=== PATIENT | female | born 1945 | race Caucasian/White ===

== ENCOUNTER 2017-07-30 09:10 | Outpatient (CLI) | payer MEDICARE, OTHER | END 2017-07-30 09:11 | disposition home or self-care (01) | LOC: BICMAMMO 09:10 | PROVIDERS: ATTEND Obstetrics & Gynecology | DX: Z12.31 Encounter for screening mammogram for malignant neoplasm of breast (principal); Z85.3 Personal history of malignant neoplasm of breast | CPT/HCPCS: 77063; 77067 ==

== ENCOUNTER 2018-07-31 09:48 | Outpatient (CLI) | payer MEDICARE, OTHER ==
--- NOTE | 2018-07-31 12:17 | BD ---
DEXA BONE DENSITOMETRY: (Dual energy X-ray Absorptiometry) DATE: 07/31/18 HISTORY: 73-year-old postmenopausal white female for follow-up age-related osteoporosis screening examination. Weight: 175 lbs. Height: 66. Age of menopause: 28 years. COMPARISON: Most recent previous: 01/23/15. Baseline: 12/08/08. FINDINGS: There is a prominent levoscoliosis. This is associated with sclerotic degenerative changes along the right, concave side of the curvature, resulting in elevation of the BMD. Bone mineral density (BMD) is given in grams per square centimeter (g/cm2): LUMBAR SPINE: BMD(g/cm2) T-score Z-score L1: 0.956 -0.3 1.8 L2: 0.962 -0.6 1.8 L3: 1.058 -0.2 2.3 L4: 1.139 0.7 3.3 Total: 1.034 -0.1 2.3 Change in BMD compared to most recent previous DEXA: +3.5% Change in BMD compared to baseline DEXA: +2.3% HIP: Femoral neck: 0.611 -2.1 -0.1 Total: 0.847 -0.8 1.0 Change in BMD compared to most recent previous DEXA: +6.1% Change in BMD compared to baseline DEXA: +0.6% FRAX WHO Fracture Risk Assessment Tool: 10 Year Fracture Risk * Major osteoporotic fracture: 14% Hip fracture: 3.7% Reported Risk Factors: US(), Neck BMD=0.611, BMI=28.2 * Fracture probability is calculated for an untreated patient. Fracture probability may be lower if the patient has received treatment. IMPRESSION: 1. Bone mineral density of the lumbar spine is normal. However, there are sclerotic degenerative nicolas nges associated with prominent scoliosis, which results in elevation of the bone mineral density, and thereby could result in underestimation of the fracture risk. 2. The bone mineral density of the femoral neck is osteopenic. Fracture risk is increased. KANNAN Butt POS: ELIJAH
== END 2018-07-31 09:49 | disposition home or self-care (01) ==
LOC: BICMAMMO 09:48
PROVIDERS: ATTEND Obstetrics & Gynecology
DX: Z12.31 Encounter for screening mammogram for malignant neoplasm of breast (principal); Z13.820 Encounter for screening for osteoporosis; M85.859 Other specified disorders of bone density and structure, unspecified thigh; R92.1 Mammographic calcification found on diagnostic imaging of breast; Z98.890 Other specified postprocedural states; Z85.3 Personal history of malignant neoplasm of breast
CPT/HCPCS: 77063; 77067; 77080

== ENCOUNTER 2019-03-19 06:15 | Observation (INO) | payer MEDICARE, OTHER ==
[2019-03-19 06:47] LABS: #Basophils 0.1 thou/uL (0.0-0.2); #Eosinphils 0.1 thou/uL (0.0-0.7); #Monocytes 0.4 thou/uL (0.11-0.59); #Neutrophils 4.4 thou/uL (1.40-6.50); %Basophils 1.1 % (0.0-1.0); %Eosinophils 1.1 % (0.0-10.0); %Lymphocytes 16.2 % (21.0-51.0); %Monocytes 7.2 % (0.0-10.0); %Neutrophils 74.5 % (42.0-75.0); Hemoglobin 13.3 g/dL (12.0-16.0); Mean Corpuscular HGB CONC 34.4 g/dL (32.0-36.0); Mean Corpuscular Hemoglobin 30.5 pg (27.0-31.0); Mean Corpuscular Volume 88.7 fL (78.0-98.0); Mean Platelet Volume 6.4 fL (7.4-10.4); Platelet Count 226 thou/uL (130-400); RBC Distribution Width 12.3 % (11.5-14.5); Red Blood Cell (RBC) Count 4.37 mill/uL (4.20-5.40)
[2019-03-19 07:06] LABS: ALT (SGPT) 22 U/L (8-55); AST (SGOT) 20 U/L (5-34); Albumin 4.3 g/dL (3.4-4.8); Alkaline Phosphatase 104 U/L (40-150); Anion Gap 12 mmol/L (10-20); BUN (Urea Nitrogen) 13 mg/dL (9.8-20.1); Bilirubin, Total 0.5 mg/dL (0.2-1.2); CK (CPK) 99 U/L (29-168); Calc. Creatinine Clearance 0 mL/min (70-130); Calcium 9.7 mg/dL (7.8-10.44); Carbon Dioxide 24 mmol/L (23-31); Chloride 102 mmol/L (98-107); Estimated GFR-MDRD 79; Globulin 2.3 g/dL (2.4-3.5); Glucose 161 mg/dL (83-110); Potassium 3.1 mmol/L (3.5-5.1); Protein, Total 6.6 g/dL (6.0-8.3); Sodium 135 mmol/L (136-145)
--- NOTE | 2019-03-19 07:57 | RAD ---
RADIOGRAPH CHEST 1 VIEW: DATE: 03/19/2019 HISTORY: 73-year-old female with palpitations FINDINGS: There are no airspace densities, pulmonary edema, pneumothorax, or cardiomegaly. The lateral costophr enic angles are sharp. Prominent dextroscoliosis of lower thoracic spine. Levoscoliosis of lumbar spine incompletely imaged. IMPRESSION: 1. No acute cardiopulmonary findings. 2. S-shaped scoliosis.
[2019-03-19] MEDS ORDERED: Potassium Chloride 20 MEQ TAB ONE (08:06)
[2019-03-19] MEDS ORDERED: Aspirin Chewable 81 MG TAB ONE (08:06)
[2019-03-19] MEDS ORDERED: ADENOSINE 60 MG/20 ML VIAL ONE (09:51)
[2019-03-19 11:14] LABS: Free T4 (Free Thyroxine) 1.06 ng/dL (0.70-1.48); Thyroid Stimulating Hormone 0.7872 uIU/mL (0.35-4.94)
[2019-03-19] MEDS ORDERED: Ondansetron PF 4 MG/2 ML Vial IVP PRN (12:03)
[2019-03-19] MEDS ORDERED: Nitroglycerin 0.4 MG TAB (25 Tab Bottle) PO PRN (12:03)
[2019-03-19] MEDS ORDERED: Acetaminophen 325 MG TAB PO PRN (12:03)
[2019-03-19] MEDS ORDERED: Ondansetron ODT 4 MG TAB PO PRN (12:03)
[2019-03-19 13:28] LABS: Magnesium 1.7 mg/dL (1.6-2.6); Potassium 3.4 mmol/L (3.5-5.1)
[2019-03-19 13:34] LABS: Troponin I 0.031 ng/mL (< 0.028)
--- NOTE | 2019-03-19 16:34 | NM ---
EXAM: CARDIAC SPECT HISTORY: Chest pain, hypertension, diabetes, dyslipidemia TECHNIQUE: A myocardial perfusion scan was performed using the single isotope 1 day protocol with xuan hnetium 99m sestamibi. [10 mCi] was injected intravenously for the rest exam followed by 30 mCi for the stress study. Pharmacologic stress with adenosine was monitored and interpreted by Dr. Ash FINDINGS: Homogeneous tracer distribution is seen in the myocardial segments on stress and rest image s without fixed or reversible defects. Gated SPECT LVEF: 73% Wall motion exam: Normal IMPRESSION: Normal myocardial perfusion scan
[2019-03-19 16:39] VITALS: BMI 29.2
[2019-03-19] MEDS: Famotidine 20 MG TAB PO SCH (20:05)
--- NOTE | 2019-03-19 21:43 | HP ---
PRIMARY CARE PHYSICIAN: Anitha Patino MD. CHIEF COMPLAINT: Palpitations. HISTORY OF PRESENT ILLNESS: Ms. Gibson is a pleasant 73-year-old female who has a past medical history of hypertension, hyperlipidemia, hypothyroidism, Duff's palsy, and borderline diabetes, who had presented to [facility] earlier this morning after she had noticed on and off palpitations over the last 3 to 4 days. She has a sensation that her heart is fluttering in her chest, but she had denied any chest pain or pressure. She states that she has just felt odd and not herself. She had denied any fever, chills, any headache, blurred vision or dizziness, any chest pain, shortness of breath, abdominal pain, nausea, vomiting, change in her stool or numbness, tingling, or weakness down her upper and lower extremities. Her workup in the ED showed her potassium was low at 3.1, but otherwise unremarkable, she was given potassium replacement along with baby aspirin, she was monitored on tele and she states that she feels somewhat better, her repeat potassium came back 3.4, and she states that the symptoms were a little bit better. She however does state that her pharmacy sales representative is Dr. Ash and she states that she had a cardiac catheterization about 3 to 5 years ago, which showed some mild coronary artery disease, for that reason, she will be brought in and undergo further workup for ACS rule out. REVIEW OF SYSTEMS: All other systems were reviewed and found to be negative unless mentioned in the HPI. PAST MEDICAL HISTORY: Hypertension, hyperlipidemia, gastroesophageal reflux disease, borderline diabetes, mild Duff's palsy, hypothyroidism, and history of right breast cancer. PAST SURGICAL HISTORY: Lumpectomy on the right side, cardiac catheterization, hysterectomy, oophorectomy. PSYCHIATRIC HISTORY: None. SOCIAL HISTORY: The patient denies alcohol, tobacco, or illicit drug use. KNOWN ALLERGIES: No known drug allergies. CURRENT HOME MEDICATIONS: 1. Atorvastatin 20 mg oral daily. 2. Levothyroxine 88 mcg oral daily. 3. Losartan 100 mg once daily. 4. Atenolol chlorthalidone 50/25 mg once daily. 5. Potassium chloride 8 mEq oral daily. 6. Aspirin 81 mg daily. PHYSICAL EXAMINATION: VITAL SIGNS: BP 158/68, pulse 74, respirations 20, temperature 98.1, O2 saturation 96% on room air. GENERAL: The patient is awake, alert, and oriented x3. She is currently lying comfortably in bed and in no acute distress. Her family is at bedside. HEENT: Atraumatic, normocephalic. Pupils are round and reactive to light. Extraocular muscles intact. Moist mucous membranes noted. NECK: Soft and supple. Trachea midline. CARDIOVASCULAR: Positive S1 and S2. Regular rate and rhythm. No murmur auscultated. RESPIRATORY: Clear to auscultation bilaterally. No wheezes, rales, or rhonchi. ABDOMEN: Soft, nontender. Bowel sounds present. MUSCULOSKELETAL: Strength 5+ bilaterally upper and lower extremities. Moves all extremities equal. No edema noted. NEUROLOGIC: Cranial nerves 2 through 12 grossly intact. No focal deficits noted. Speech intact and normal. Gait not assessed. The patient does appear to have slight facial droop; however, this is her baseline due to Duff's palsy. SKIN: Warm, dry, and intact. No rashes. No ulceration noted. PSYCHIATRIC: Good mood and affect. LABORATORY FINDING: WBC 6.0, RBC 4.37, hemoglobin 13.3, platelets 226. Sodium 135, potassium 3.1 and then 3.4, anion gap 12, BUN 13, creatinine 0.72, estimated GFR 79, glucose 161, magnesium 1.8. Troponin less than 0.010. Free T4 of 1.06, TSH 0.7872. DIAGNOSTIC IMAGING: Portable chest x-ray showed no acute cardiopulmonary findings. EKG shows normal sinus rhythm with preventricular complex. ASSESSMENT AND PLAN: 1. Palpitations, she is normal sinus rhythm with a premature ventricular contraction on the monitor. Her initial troponin is negative and serial checks are pending. She is currently asymptomatic at this time; however, she will undergo cardiac stress testing for further acute coronary syndrome rule out. 2. Hypertension, currently stable at this time. She will be restarted on her home regimen. 3. Hyperlipidemia. Continue home statin. 4. Hypothyroidism. TSH and T4 stable at this time. Continue home dose of levothyroxine. 5. Hypokalemia. Continue with potassium chloride and recheck BMP in the morning. 6. Borderline diabetes mellitus. We will closely monitor blood sugars and add an insulin sliding scale if needed. 7. Deep venous thrombosis and gastrointestinal prophylaxis. 8. Code status is full code. 9. Surrogate decision maker is her daughter, Malka Truong. DISPOSITION: Pending further workup and clinical findings. Job ID: [id number]
[2019-03-20 05:27] LABS: #Eosinphils 0.1 thou/uL (0.0-0.7); #Lymphocytes 1.2 thou/uL (1.20-3.40); #Monocytes 0.3 thou/uL (0.11-0.59); #Neutrophils 2.2 thou/uL (1.40-6.50); %Basophils 0.3 % (0.0-1.0); %Lymphocytes 31.8 % (21.0-51.0); Hemoglobin 12.5 g/dL (12.0-16.0); Mean Corpuscular HGB CONC 34.5 g/dL (32.0-36.0); Mean Corpuscular Volume 89.7 fL (78.0-98.0); Mean Platelet Volume 6.3 fL (7.4-10.4); Platelet Count 203 thou/uL (130-400); RBC Distribution Width 12.2 % (11.5-14.5); Red Blood Cell (RBC) Count 4.05 mill/uL (4.20-5.40); White Blood Cell (WBC) Count 3.8 thou/uL (4.8-10.8)
[2019-03-20 05:46] LABS: Anion Gap 12 mmol/L (10-20); BUN (Urea Nitrogen) 7 mg/dL (9.8-20.1); Calc. Creatinine Clearance 102 mL/min (70-130); Calcium 9.1 mg/dL (7.8-10.44); Carbon Dioxide 25 mmol/L (23-31); Cardiac Risk 2.2 (Less than 4.5); Chloride 101 mmol/L (98-107); Cholesterol 141 mg/dl (< 200 Desired); Estimated GFR-MDRD Greater than 90; Glucose 118 mg/dL (83-110); HDL Cholesterol 64 mg/dL (>60 Neg Risk); LDL Cholesterol, Calculated 66 mg/dL; Potassium 3.5 mmol/L (3.5-5.1); Sodium 134 mmol/L (136-145); Triglycerides 57 mg/dL (Less than 150)
[2019-03-20 08:10] VITALS: BP 155/67; TEMP 98.5
[2019-03-20] MEDS: Famotidine 20 MG TAB PO SCH (08:39)
[2019-03-20] MEDS ORDERED: Enoxaparin Sodium 40 MG/0.4 ML SYRINGE SC SCH (09:00)
[2019-03-20] MEDS ORDERED: CHLORTHALIDONE PO SCH (09:00)
[2019-03-20] MEDS ORDERED: ATENOLOL PO SCH (09:00)
[2019-03-20] MEDS ORDERED: Levothyroxine Sodium 88 MCG TAB PO SCH (09:00)
[2019-03-20] MEDS ORDERED: Losartan 25 MG TAB PO SCH (09:00)
[2019-03-20] MEDS ORDERED: Atorvastatin Calcium 20 MG TAB PO SCH (09:00)
[2019-03-20] MEDS ORDERED: Atenolol 50 MG TAB PO SCH (09:00)
[2019-03-20] MEDS ORDERED: Aspirin 81 mg Enteric Coated Tablet PO SCH (09:00)
[2019-03-20] MEDS ORDERED: Potassium Chloride 8 MEQ TAB PO SCH (09:00)
[2019-03-20] MEDS ORDERED: Chlorthalidone 25 MG TAB PO SCH (09:00)
[2019-03-20] MEDS ORDERED: Non-Formulary Item 1 EACH (Losartan Potassium [Cozaar] 100 MG) PO SCH (09:00)
[2019-03-20] MEDS ORDERED: [UNRECOGNIZED DRUG - OTHER] PO SCH (09:00)
--- NOTE | 2019-03-20 22:16 | DIS ---
DATE OF ADMISSION: 03/19/2019 DATE OF DISCHARGE: 03/20/2019 DISCHARGE DIAGNOSES: 1. Palpitations. 2. Chest pain. 3. Hypokalemia. 4. Hyperlipidemia. 5. Hypothyroidism. HOSPITAL COURSE: The patient is a 73-year-old female, who initially presented to the hospital with complaints of palpitations. Please look at the H and P for further details. She was found to be hypokalemic, had a potassium of 3.1. Her potassium was supplemented. She did undergo a stress test, which was normal. Overnight, she had no events on her telemetry. The patient was then discharged home. She will follow up with her primary. Her potassium has been replaced. I did advise her to take her 8 mEq of potassium twice a day every other day. I have provided her with the lab slip that she will check her blood work next week and she will follow up with her primary. She is on losartan, which should increase her potassium; however, she is also on chlorthalidone, which could also cause hypokalemia. I did advise the patient to follow up with her primary to keep a close eye on her blood work for her potassium levels. HOME MEDICATIONS: Her home medications will be; 1. Potassium 8 mEq one b.i.d. every other day, on the alternate days, she will take it daily. 2. Losartan 100 mg daily. 3. Levothyroxine 88 mcg daily. 4. Atorvastatin 20 mg daily. 5. Atenolol and chlorthalidone 1 tablet p.o. daily. 6. Aspirin 81 mg daily. PHYSICAL EXAMINATION: VITAL SIGNS: Temperature 98.5, pulse 67, respiratory rate 15, O2 saturation 94% on room air, blood pressure 155/67. GENERAL: She is awake, alert, and oriented x3. Does not appear in distress. CV: S1, S2 present. No murmurs, rubs, or gallops. ABDOMEN: Soft and nontender. Bowel sounds are present x2. We also checked her TSH. Her TSH was 0.78 and it was within normal range. Job ID: [id number]
--- NOTE | 2019-03-27 13:51 | EKG ---
Test Reason : PALPITATIONS Blood Pressure : / mmHG Vent. Rate : 079 BPM Atrial Rate : 079 BPM P-R Int : 182 ms QRS Dur : 094 ms QT Int : 392 ms P-R-T Axes : 066 001 051 degrees QTc Int : 449 ms Sinus rhythm with occasional Premature ventricular complexes Possible Anterior infarct , age undetermined Abnormal ECG Confirmed by MCKAY GARCIA DO ([id number]), metropolitan editor MARIANA BUSTAMANTE ([id number]) on 03/27/2019 1:51:16 PM Referred By: Confirmed By:MCKAY GARCIA DO
--- NOTE | 2019-03-27 13:51 | EKG ---
Test Reason : CP Blood Pressure : / mmHG Vent. Rate : 071 BPM Atrial Rate : 071 BPM P-R Int : 158 ms QRS Dur : 086 ms QT Int : 414 ms P-R-T Axes : -20 -06 051 degrees QTc Int : 449 ms Normal sinus rhythm Normal ECG #3 Confirmed by MCKAY GARCIA DO ([id number]), supervising editor news reel MARIANA BUSTAMANTE ([id number]) on 03/27/2019 1:51:31 PM Referred By: JOSE Confirmed By:MCKAY GARCIA DO
== END 2019-03-20 10:42 | disposition home or self-care (01) ==
LOC: ERS 06:15 → ERHOLD 07:20 → 2SW 13:35
PROVIDERS: ADMIT Internal Medicine; ATTEND Internal Medicine
DX: R00.2 Palpitations (principal); E87.6 Hypokalemia; E78.5 Hyperlipidemia, unspecified; E03.9 Hypothyroidism, unspecified; I10 Essential (primary) hypertension; E11.9 Type 2 diabetes mellitus without complications; K21.9 Gastro-esophageal reflux disease without esophagitis; Z79.82 Long term (current) use of aspirin; Z79.899 Other long term (current) drug therapy
CPT/HCPCS: 71045; 78452; 80048; 80061; 82550; 83735; 84132; 84439; 84484 ×2; 85025; 93005; 93017; 99285; A9500; G0378 ×3; 36415; 80053; 84443; J0153; J1650

== ENCOUNTER 2019-08-03 09:50 | Outpatient (CLI) | payer MEDICARE, OTHER ==
--- NOTE | 2019-08-03 10:33 | MMO ---
Bilateral MAMMO Bilat Screen [facility]. CLINICAL HISTORY: Patient is 74 years old and is seen for screening. The patient has no family history of breast cancer. The patient has a history of right Lumpectomy in 2008 - malignant. VIEWS: The views performed were: bilateral craniocaudal with tomosynthesis and bilateral mediolateral oblique with tomosynthesis. FILMS COMPARED: The present examination has been compared to prior imaging studies performed at [facility] on 07/30/2017 and 07/31/2018, and at [facility] on 07/25/2015 and 07/29/2016. This study has been interpreted with the assistance of computer-aided detection. MAMMOGRAM FINDINGS: The breasts are heterogeneously dense, which could obscure a lesion on mammography. Finding 1: There are stable post operative changes seen in the right breast. Finding 2: There are stable benign appearing calcifications seen in both breasts. There are no suspicious masses, suspicious calcifications, or new areas of architectural distortion. IMPRESSION: THERE IS NO MAMMOGRAPHIC EVIDENCE OF MALIGNANCY. A ROUTINE FOLLOW-UP MAMMOGRAM IN 1 YEAR IS RECOMMENDED. THE RESULTS OF THIS EXAM WERE SENT TO THE PATIENT. ACR BI-RADS Category 2 - Benign finding MAMMOGRAPHY NOTE: 1. A negative mammogram report should not delay a biopsy if a dominant of clinically suspicious mass is present. 2. Approximately 10% to 15% of breast cancers are not detected by mammography. 3. Adenosis and dense breasts may obscure an underlying neoplasm. Reported by: TINA HICKS MD Electonically Signed: [id number]
== END 2019-08-03 09:51 | disposition home or self-care (01) ==
LOC: BICMAMMO 09:50
PROVIDERS: ATTEND Obstetrics & Gynecology
DX: Z12.31 Encounter for screening mammogram for malignant neoplasm of breast (principal); Z98.890 Other specified postprocedural states
CPT/HCPCS: 77063; 77067

== ENCOUNTER 2020-04-03 08:19 | Outpatient (CLI) | payer MEDICARE ==
--- NOTE | 2020-04-03 11:46 | NM ---
EXAM: NM Hida Scan W Drug PROVIDED CLINICAL HISTORY: Right upper quadrant abdominal pain. COMPARISON: None FINDINGS: There is normal uptake and excretion of radiotracer by the liver. Gallbladder activity is faintly vis ualized by 7 minutes with increased uptake of radiotracer within the gallbladder imaging up to 60 minutes. After 60 minutes of imaging imaging, the patient was administered 8 ounces of ensure by michelle bass. A gallbladder ejection fraction of 80% was obtained. A normal gallbladder ejection fraction is greater than 33%. IMPRESSION: 1. No evidence of a cystic or common duct obstruction. 2. Normal gallbladder ejection fraction.
== END 2020-04-03 08:20 | disposition home or self-care (01) ==
LOC: NM 08:19
PROVIDERS: ATTEND Family Medicine
DX: R10.11 Right upper quadrant pain (principal)
CPT/HCPCS: 78227; A9537

== ENCOUNTER 2020-10-30 04:27 | Inpatient (IN) | payer MEDICARE ==
[2020-10-30] MEDS ORDERED: Ondansetron PF 4 MG/2 ML Vial ONE ×4 (04:51→20:12)
[2020-10-30 05:07] LABS: #Eosinphils 0.1 thou/uL (0.0-0.7); #Lymphocytes 1.4 thou/uL (1.20-3.40); #Monocytes 0.5 thou/uL (0.11-0.59); #Neutrophils 3.8 thou/uL (1.40-6.50); %Basophils 0.7 % (0.0-1.0); %Eosinophils 1.4 % (0.0-10.0); %Lymphocytes 24.1 % (21.0-51.0); %Monocytes 8.8 % (0.0-10.0); %Neutrophils 64.9 % (42.0-75.0); Mean Corpuscular HGB CONC 34.2 g/dL (32.0-36.0); Mean Corpuscular Hemoglobin 30.6 pg (27.0-31.0); Mean Corpuscular Volume 89.6 fL (78.0-98.0); Mean Platelet Volume 6.2 fL (7.4-10.4); Platelet Count 254 thou/uL (130-400); RBC Distribution Width 12.4 % (11.5-14.5); Red Blood Cell (RBC) Count 4.26 mill/uL (4.20-5.40); White Blood Cell (WBC) Count 5.9 thou/uL (4.8-10.8)
[2020-10-30 05:32] LABS: ALT (SGPT) 21 U/L (8-55); AST (SGOT) 20 U/L (5-34); Albumin 4.2 g/dL (3.4-4.8); Alkaline Phosphatase 105 U/L (40-110); Anion Gap 10 mmol/L (10-20); BUN (Urea Nitrogen) 16 mg/dL (9.8-20.1); Bilirubin, Total 0.4 mg/dL (0.2-1.2); Calc. Creatinine Clearance 0 mL/min (70-130); Calcium 9.5 mg/dL (7.8-10.44); Carbon Dioxide 27 mmol/L (23-31); Chloride 99 mmol/L (98-107); Globulin 2.6 g/dL (2.4-3.5); Glucose 160 mg/dL (83-110); Potassium 3.2 mmol/L (3.5-5.1); Protein, Total 6.8 g/dL (5.8-8.1); Sodium 133 mmol/L (136-145)
[2020-10-30] MEDS ORDERED: Meclizine HCl 25 MG TAB ONE ×2 (05:37→14:02)
[2020-10-30] MEDS ORDERED: Aspirin Chewable 81 MG TAB ONE ×4 (06:33→07:54)
[2020-10-30 08:33] LABS: Bilirubin Negative (Negative); Blood, Urine Negative (Negative); Clarity Clear (Clear); Glucose, Urine (Dipstick) Normal (Negative); Ketone, Urine Negative (Negative); Leukocyte Negative Leu/uL (Negative); Nitrite Negative (Negative); Protein, Urine (Dipstick) Negative (Neg-Trace); Specific Gravity, Urine 1.019 (1.002-1.036); Urobilinogen Normal mg/dL (Less than 2); pH, Urine 6.5 (5.0-9.0)
[2020-10-30] MEDS ORDERED: hydrALAZINE 20 MG/ML VIAL SLOW IVP PRN (09:11)
[2020-10-30 13:57] LABS: SARS-CoV-2 PCR by NAA Not Detected (NotDetected)
[2020-10-30] MEDS: Ondansetron PF 4 MG/2 ML Vial IVP PRN ×2 (14:25→20:12)
[2020-10-30] MEDS: Meclizine HCl 12.5 MG TAB PO PRN ×2 (14:25→22:42)
[2020-10-30 21:18] VITALS: BMI 26.7
[2020-10-30] MEDS ORDERED: Dextrose 50% Abboject 50 ML SYRINGE SLOW IVP PRN (21:37)
[2020-10-30] MEDS ORDERED: Dextrose 5% in Water 1,000 ML IV PRN (21:37)
[2020-10-30] MEDS ORDERED: metFORMIN 500 MG TAB PO SCH (21:45)
[2020-10-30] MEDS: Acetaminophen 500 MG TAB PO PRN (22:37)
[2020-10-30] MEDS: Potassium Chloride 20 MEQ TAB PO SCH ×2 (22:41→22:48)
[2020-10-30] MEDS: Rosuvastatin 20 MG TAB PO SCH (22:42)
[2020-10-31] MEDS: Meclizine HCl 12.5 MG TAB PO PRN ×2 (04:54→13:15)
[2020-10-31] MEDS: Acetaminophen 500 MG TAB PO PRN ×3 (04:54→21:58)
[2020-10-31] MEDS: Levothyroxine Sodium 88 MCG TAB PO SCH (04:54)
[2020-10-31] MEDS ORDERED: Prochlorperazine 10 MG/2 ML VIAL IM PRN (09:19)
[2020-10-31] MEDS: Enoxaparin Sodium 40 MG/0.4 ML SYRINGE SC SCH (09:26)
[2020-10-31] MEDS: Aspirin 81 mg Enteric Coated Tablet PO SCH (09:26)
[2020-10-31] MEDS: Insulin Regular 300 UNITS/3 ML VIAL SC PRN (11:42)
[2020-10-31] MEDS: metFORMIN 500 MG TAB PO SCH (17:48)
[2020-10-31] MEDS ORDERED: Potassium Chloride 8 MEQ TAB PO SCH ×2 (21:00)
[2020-10-31] MEDS: Meclizine HCl 25 MG TAB PO SCH (21:58)
[2020-10-31] MEDS: Rosuvastatin 20 MG TAB PO SCH (21:58)
[2020-11-01 05:56] LABS: #Lymphocytes 1.2 thou/uL (1.20-3.40); #Monocytes 0.6 thou/uL (0.11-0.59); #Neutrophils 3.3 thou/uL (1.40-6.50); %Basophils 0.4 % (0.0-1.0); %Eosinophils 0.9 % (0.0-10.0); %Lymphocytes 23.2 % (21.0-51.0); %Monocytes 10.8 % (0.0-10.0); %Neutrophils 64.7 % (42.0-75.0); Hemoglobin 12.1 g/dL (12.0-16.0); Mean Corpuscular HGB CONC 35.2 g/dL (32.0-36.0); Mean Corpuscular Hemoglobin 31.1 pg (27.0-31.0); Mean Corpuscular Volume 88.4 fL (78.0-98.0); Platelet Count 218 thou/uL (130-400); RBC Distribution Width 12.1 % (11.5-14.5); Red Blood Cell (RBC) Count 3.89 mill/uL (4.20-5.40); White Blood Cell (WBC) Count 5.1 thou/uL (4.8-10.8)
[2020-11-01] MEDS: Meclizine HCl 25 MG TAB PO SCH ×3 (06:15→21:33)
[2020-11-01] MEDS: Levothyroxine Sodium 88 MCG TAB PO SCH (06:15)
[2020-11-01 06:18] LABS: Anion Gap 10 mmol/L (10-20); BUN (Urea Nitrogen) 6 mg/dL (9.8-20.1); Calc. Creatinine Clearance 96 mL/min (70-130); Calcium 8.8 mg/dL (7.8-10.44); Carbon Dioxide 26 mmol/L (23-31); Chloride 96 mmol/L (98-107); Glucose 108 mg/dL (83-110); Potassium 3.1 mmol/L (3.5-5.1); Sodium 129 mmol/L (136-145)
[2020-11-01] MEDS ORDERED: Lactated Ringer's 1,000 ML IV SCH (08:00)
[2020-11-01] MEDS ORDERED: Potassium Chloride 20 MEQ TAB PO SCH (08:00)
[2020-11-01] MEDS ORDERED: Amlodipine 10 MG TAB PO SCH (09:00)
[2020-11-01] MEDS: Potassium Chloride 8 MEQ TAB PO SCH (09:48)
[2020-11-01] MEDS: Aspirin 81 mg Enteric Coated Tablet PO SCH (09:49)
[2020-11-01] MEDS: Enoxaparin Sodium 40 MG/0.4 ML SYRINGE SC SCH (09:50)
[2020-11-01] MEDS: Sodium Chloride 0.9% 1,000 ML IV SCH (09:53)
[2020-11-01] MEDS: Acetaminophen 500 MG TAB PO PRN ×2 (10:45→21:33)
[2020-11-01] MEDS: Insulin Regular 300 UNITS/3 ML VIAL SC PRN (10:51)
[2020-11-01] MEDS ORDERED: Atenolol 50 MG TAB PO SCH (14:00)
[2020-11-01] MEDS ORDERED: Losartan 25 MG TAB PO SCH (14:00)
[2020-11-01] MEDS ORDERED: NIFEdipine XL 30 MG TAB PO SCH (14:00)
[2020-11-01] MEDS ORDERED: Chlorthalidone 25 MG TAB PO SCH (14:00)
[2020-11-01] MEDS: metFORMIN 500 MG TAB PO SCH (16:41)
[2020-11-01] MEDS: Rosuvastatin 20 MG TAB PO SCH (21:32)
[2020-11-02] MEDS: Sodium Chloride 0.9% 1,000 ML IV SCH ×2 (01:05→11:06)
[2020-11-02] MEDS: Levothyroxine Sodium 88 MCG TAB PO SCH (06:27)
[2020-11-02] MEDS: Meclizine HCl 25 MG TAB PO SCH ×2 (06:27→13:34)
[2020-11-02 08:34] LABS: #Eosinphils 0.1 thou/uL (0.0-0.7); #Monocytes 0.6 thou/uL (0.11-0.59); #Neutrophils 4.2 thou/uL (1.40-6.50); %Basophils 0.6 % (0.0-1.0); %Eosinophils 1.1 % (0.0-10.0); %Lymphocytes 16.8 % (21.0-51.0); %Monocytes 9.8 % (0.0-10.0); %Neutrophils 71.7 % (42.0-75.0); Hemoglobin 13.2 g/dL (12.0-16.0); Mean Corpuscular HGB CONC 34.2 g/dL (32.0-36.0); Mean Corpuscular Hemoglobin 30.2 pg (27.0-31.0); Mean Corpuscular Volume 88.3 fL (78.0-98.0); Mean Platelet Volume 6.1 fL (7.4-10.4); Platelet Count 247 thou/uL (130-400); RBC Distribution Width 12.4 % (11.5-14.5); Red Blood Cell (RBC) Count 4.36 mill/uL (4.20-5.40); White Blood Cell (WBC) Count 5.9 thou/uL (4.8-10.8)
[2020-11-02 08:54] LABS: Anion Gap 11 mmol/L (10-20); BUN (Urea Nitrogen) 4 mg/dL (9.8-20.1); Calc. Creatinine Clearance 100 mL/min (70-130); Carbon Dioxide 21 mmol/L (23-31); Chloride 100 mmol/L (98-107); Glucose 123 mg/dL (83-110); Potassium 3.4 mmol/L (3.5-5.1); Sodium 129 mmol/L (136-145)
[2020-11-02] MEDS: Aspirin 81 mg Enteric Coated Tablet PO SCH (08:54)
[2020-11-02] MEDS: Potassium Chloride 8 MEQ TAB PO SCH (08:54)
[2020-11-02] MEDS: Enoxaparin Sodium 40 MG/0.4 ML SYRINGE SC SCH (08:55)
[2020-11-02] MEDS ORDERED: Chlorthalidone 25 MG TAB PO SCH (09:00)
[2020-11-02] MEDS ORDERED: NIFEdipine XL 30 MG TAB PO SCH (09:00)
[2020-11-02] MEDS ORDERED: Atenolol 50 MG TAB PO SCH (09:00)
[2020-11-02] MEDS ORDERED: Losartan 25 MG TAB PO SCH (09:00)
[2020-11-02] MEDS: Acetaminophen 500 MG TAB PO PRN (09:06)
[2020-11-02] MEDS ORDERED: Potassium Chloride 20 MEQ TAB PO SCH (10:45)
[2020-11-02 12:14] VITALS: TEMP 97.9
[2020-11-02] MEDS ORDERED: Calcium Carbonate 500 MG ChewTAB PO PRN (14:03)
[2020-11-02 14:27] VITALS: BP 164/68
[2020-11-02] MEDS ORDERED: Potassium Chloride 8 MEQ TAB PO SCH (18:00)
[2020-11-02] MEDS ORDERED: Amlodipine 5 MG TAB PO SCH (21:00)
== END 2020-11-02 16:08 | disposition home or self-care (01) | DRG 155 ==
LOC: ERS 04:27 → ERHOLD 06:43 → 2SE 20:20 → OBSVTOIN 11-01 11:21
PROVIDERS: ADMIT Internal Medicine; ATTEND Hospitalist
DX: H74.8X1 Other specified disorders of right middle ear and mastoid (principal); E87.1 Hypo-osmolality and hyponatremia; I10 Essential (primary) hypertension; E78.5 Hyperlipidemia, unspecified; E11.9 Type 2 diabetes mellitus without complications; K21.9 Gastro-esophageal reflux disease without esophagitis; E03.9 Hypothyroidism, unspecified; I25.10 Atherosclerotic heart disease of native coronary artery without angina pectoris; G51.0 Bell's palsy; I65.22 Occlusion and stenosis of left carotid artery; R11.0 Nausea; H74.91 Unspecified disorder of right middle ear and mastoid; E87.6 Hypokalemia; Z85.3 Personal history of malignant neoplasm of breast; Z88.8 Allergy status to other drugs, medicaments and biological substances; Z79.82 Long term (current) use of aspirin; Z79.84 Long term (current) use of oral hypoglycemic drugs; Z95.5 Presence of coronary angioplasty implant and graft; Z90.710 Acquired absence of both cervix and uterus; Z90.13 Acquired absence of bilateral breasts and nipples
CPT/HCPCS: 36415; 36416; 70450; 70551; 71045; 80048; 80053; 80061; 81003; 84484; 85025; 87635; 93005; 93306; 93880; 96372; 96374; 96376; G0378; J0780; J1650; J1815; J2405; U0003; U0005

== ENCOUNTER 2020-12-21 12:51 | Inpatient (IN) | payer MEDICARE ==
[~2020-12-21 12:51] MED LIST: Iopamidol-370 76% 500 ML 1 ML ONE
[2020-12-21 13:55] LABS: #Lymphocytes 0.8 thou/uL (1.20-3.40); #Monocytes 0.7 thou/uL (0.11-0.59); %Basophils 0.2 % (0.0-1.0); %Eosinophils 0.5 % (0.0-10.0); %Monocytes 7.6 % (0.0-10.0); %Neutrophils 82.7 % (42.0-75.0); Hemoglobin 13.6 g/dL (12.0-16.0); Mean Corpuscular HGB CONC 33.8 g/dL (32.0-36.0); Mean Corpuscular Hemoglobin 30.8 pg (27.0-31.0); Mean Corpuscular Volume 91.2 fL (78.0-98.0); Mean Platelet Volume 6.2 fL (7.4-10.4); Platelet Count 264 thou/uL (130-400); RBC Distribution Width 12.8 % (11.5-14.5); Red Blood Cell (RBC) Count 4.41 mill/uL (4.20-5.40); White Blood Cell (WBC) Count 8.5 thou/uL (4.8-10.8)
[2020-12-21 14:21] LABS: ALT (SGPT) 30 U/L (8-55); AST (SGOT) 24 U/L (5-34); Albumin 4.3 g/dL (3.4-4.8); Alkaline Phosphatase 114 U/L (40-110); Anion Gap 12 mmol/L (10-20); BUN (Urea Nitrogen) 11 mg/dL (9.8-20.1); Bilirubin, Total 0.8 mg/dL (0.2-1.2); Calc. Creatinine Clearance 0 mL/min (70-130); Calcium 9.8 mg/dL (7.8-10.44); Carbon Dioxide 26 mmol/L (23-31); Chloride 97 mmol/L (98-107); Globulin 2.7 g/dL (2.4-3.5); Glucose 137 mg/dL (83-110); Lipase 19 U/L (8-78); Potassium 3.7 mmol/L (3.5-5.1); Sodium 131 mmol/L (136-145)
[2020-12-21 15:14] LABS: Bilirubin Negative (Negative); Blood, Urine Negative (Negative); Glucose, Urine (Dipstick) Negative (Negative); Ketone, Urine Negative (Negative); Leukocyte Trace (Negative); Nitrite Negative (Negative); Protein, Urine (Dipstick) Negative (Neg-Trace); Specific Gravity, Urine 1.015 (1.005-1.030); Urobilinogen 0.2 mg/dL (Less than 2)
[2020-12-21 15:15] LABS: Clarity Clear (Clear)
[2020-12-21 15:21] LABS: Bacteria/HPF 1+ HPF (None Seen); RBC/HPF 0-3 HPF (0-3); WBC/HPF 0-3 HPF (0-3)
[2020-12-21] MEDS ORDERED: Ondansetron PF 4 MG/2 ML Vial IVP PRN (17:36)
[2020-12-21] MEDS ORDERED: Ondansetron ODT 4 MG TAB PO PRN (17:36)
[2020-12-21] MEDS ORDERED: Ketorolac Tromethamine 30 MG/ML VIAL ONE (17:38)
[2020-12-21] MEDS ORDERED: Morphine 2 MG/ML VIAL SLOW IVP PRN (17:40)
[2020-12-22 00:23] VITALS: BMI 26.6
[2020-12-22] MEDS: Sodium Chloride 0.9% 1,000 ML IV SCH ×4 (00:31→18:22)
[2020-12-22 06:23] LABS: #Lymphocytes 0.9 thou/uL (1.20-3.40); #Monocytes 0.7 thou/uL (0.11-0.59); #Neutrophils 3.5 thou/uL (1.40-6.50); %Eosinophils 0.7 % (0.0-10.0); %Lymphocytes 16.5 % (21.0-51.0); %Monocytes 14.2 % (0.0-10.0); %Neutrophils 68.5 % (42.0-75.0); Hemoglobin 12.1 g/dL (12.0-16.0); Mean Corpuscular HGB CONC 33.7 g/dL (32.0-36.0); Mean Corpuscular Hemoglobin 30.2 pg (27.0-31.0); Mean Corpuscular Volume 89.9 fL (78.0-98.0); Mean Platelet Volume 6.3 fL (7.4-10.4); Platelet Count 217 thou/uL (130-400); RBC Distribution Width 12.7 % (11.5-14.5); White Blood Cell (WBC) Count 5.1 thou/uL (4.8-10.8)
[2020-12-22 06:38] LABS: Anion Gap 12 mmol/L (10-20); BUN (Urea Nitrogen) 10 mg/dL (9.8-20.1); Calc. Creatinine Clearance 96 mL/min (70-130); Calcium 8.9 mg/dL (7.8-10.44); Carbon Dioxide 23 mmol/L (23-31); Chloride 102 mmol/L (98-107); Glucose 126 mg/dL (83-110); Potassium 3.1 mmol/L (3.5-5.1); Sodium 134 mmol/L (136-145)
[2020-12-22] MEDS: Enoxaparin Sodium 40 MG/0.4 ML SYRINGE SC SCH (08:32)
[2020-12-22] MEDS: Chloraseptic Spray 180 ml Bottle PO PRN ×2 (10:45→13:58)
[2020-12-22 11:14] LABS: SARS-CoV-2 PCR by NAA Not Detected (NotDetected)
[2020-12-22] MEDS ORDERED: Insulin Regular 300 UNITS/3 ML VIAL SC PRN (18:17)
[2020-12-22] MEDS ORDERED: Dextrose 50% Abboject 50 ML SYRINGE SLOW IVP PRN (18:17)
[2020-12-22] MEDS ORDERED: Dextrose 5% in Water 1,000 ML IV PRN (18:17)
[2020-12-22] MEDS ORDERED: Potassium Chloride 10 MEQ in Premix Bag 1 BAG IVPB SCH (18:30)
[2020-12-22] MEDS: Cepastat Lozenges 1 LOZ PO PRN (18:35)
[2020-12-22] MEDS: Amlodipine 5 MG TAB PO SCH (20:26)
[2020-12-23] MEDS: Cepastat Lozenges 1 LOZ PO PRN (00:11)
[2020-12-23 06:35] LABS: #Lymphocytes 0.8 thou/uL (1.20-3.40); #Monocytes 0.5 thou/uL (0.11-0.59); #Neutrophils 2.3 thou/uL (1.40-6.50); %Basophils 0.9 % (0.0-1.0); %Eosinophils 1.3 % (0.0-10.0); %Lymphocytes 20.7 % (21.0-51.0); %Monocytes 14.3 % (0.0-10.0); %Neutrophils 62.7 % (42.0-75.0); Hemoglobin 12.1 g/dL (12.0-16.0); Mean Corpuscular HGB CONC 32.3 g/dL (32.0-36.0); Mean Corpuscular Hemoglobin 29.6 pg (27.0-31.0); Mean Corpuscular Volume 91.7 fL (78.0-98.0); Platelet Count 209 thou/uL (130-400); RBC Distribution Width 12.6 % (11.5-14.5); White Blood Cell (WBC) Count 3.7 thou/uL (4.8-10.8)
[2020-12-23 06:53] LABS: Anion Gap 14 mmol/L (10-20); BUN (Urea Nitrogen) 6 mg/dL (9.8-20.1); Calc. Creatinine Clearance 101 mL/min (70-130); Carbon Dioxide 22 mmol/L (23-31); Chloride 103 mmol/L (98-107); Glucose 96 mg/dL (83-110); Sodium 136 mmol/L (136-145)
[2020-12-23 06:57] LABS: Potassium 2.9 mmol/L (3.5-5.1)
[2020-12-23] MEDS: Sodium Chloride 0.9% 1,000 ML IV SCH ×2 (08:15→20:00)
[2020-12-23] MEDS: Losartan 25 MG TAB PO SCH (08:16)
[2020-12-23] MEDS: Chlorthalidone 25 MG TAB PO SCH (08:16)
[2020-12-23] MEDS: Atenolol 50 MG TAB PO SCH (08:16)
[2020-12-23] MEDS: Enoxaparin Sodium 40 MG/0.4 ML SYRINGE SC SCH (08:17)
[2020-12-23] MEDS: Chloraseptic Spray 180 ml Bottle PO PRN (08:20)
[2020-12-23] MEDS ORDERED: Non-Formulary Item 1 EACH (Atenolol/Chlorthalidone [Atenolol-Chlorthalidone 50-25] 1 EACH PO SCH (09:00)
[2020-12-23] MEDS ORDERED: MD-Gastroview 120 ML BOT ONE (10:24)
[2020-12-23] MEDS: Potassium Chloride 20 MEQ TAB PO SCH ×2 (10:30→14:18)
[2020-12-23] MEDS ORDERED: Calcium Carbonate 500 MG ChewTAB PO PRN (15:57)
[2020-12-23] MEDS ORDERED: metFORMIN XR 500 MG TAB PO SCH (17:00)
[2020-12-23] MEDS: Amlodipine 5 MG TAB PO SCH (19:59)
[2020-12-23] MEDS ORDERED: Rosuvastatin 20 MG TAB PO SCH (21:00)
[2020-12-23] MEDS ORDERED: Potassium Chloride 8 MEQ TAB PO SCH (21:00)
[2020-12-24 05:59] LABS: #Eosinphils 0.1 thou/uL (0.0-0.7); #Lymphocytes 1.3 thou/uL (1.20-3.40); #Monocytes 0.6 thou/uL (0.11-0.59); #Neutrophils 2.9 thou/uL (1.40-6.50); %Basophils 0.4 % (0.0-1.0); %Eosinophils 1.4 % (0.0-10.0); %Lymphocytes 26.8 % (21.0-51.0); %Neutrophils 59.4 % (42.0-75.0); Hemoglobin 11.7 g/dL (12.0-16.0); Mean Corpuscular HGB CONC 33.8 g/dL (32.0-36.0); Mean Corpuscular Hemoglobin 30.8 pg (27.0-31.0); Mean Corpuscular Volume 91.1 fL (78.0-98.0); Mean Platelet Volume 6.2 fL (7.4-10.4); Platelet Count 214 thou/uL (130-400); RBC Distribution Width 12.4 % (11.5-14.5); Red Blood Cell (RBC) Count 3.79 mill/uL (4.20-5.40); White Blood Cell (WBC) Count 4.8 thou/uL (4.8-10.8)
[2020-12-24] MEDS ORDERED: Levothyroxine Sodium 88 MCG TAB PO SCH (06:00)
[2020-12-24 06:13] LABS: Anion Gap 13 mmol/L (10-20); BUN (Urea Nitrogen) 5 mg/dL (9.8-20.1); Calc. Creatinine Clearance 98 mL/min (70-130); Calcium 8.5 mg/dL (7.8-10.44); Carbon Dioxide 21 mmol/L (23-31); Chloride 107 mmol/L (98-107); Glucose 109 mg/dL (83-110); Potassium 3.1 mmol/L (3.5-5.1); Sodium 138 mmol/L (136-145)
[2020-12-24] MEDS: Losartan 25 MG TAB PO SCH (08:11)
[2020-12-24] MEDS: Atenolol 50 MG TAB PO SCH (08:13)
[2020-12-24] MEDS: Chlorthalidone 25 MG TAB PO SCH (08:14)
[2020-12-24] MEDS: Enoxaparin Sodium 40 MG/0.4 ML SYRINGE SC SCH (08:14)
[2020-12-24] MEDS ORDERED: Potassium Chloride 8 MEQ TAB PO SCH (09:00)
[2020-12-24] MEDS ORDERED: Aspirin 81 mg Enteric Coated Tablet PO SCH (09:00)
[2020-12-24] MEDS: Sodium Chloride 0.9% 1,000 ML IV SCH (12:10)
[2020-12-24 12:24] VITALS: BP 153/73; TEMP 98.5
[2020-12-24] MEDS ORDERED: Potassium Chloride 20 MEQ TAB PO SCH (12:45)
== END 2020-12-24 15:26 | disposition home or self-care (01) | DRG 392 ==
LOC: ERS 12:51 → T4-A 17:36
PROVIDERS: ADMIT Internal Medicine; ATTEND Internal Medicine
PROC: 0D9670Z Drainage of Stomach with Drainage Device, Via Natural or Artificial Opening (ICD-10-PCS; principal; 2020-12-21)
DX: K52.9 Noninfective gastroenteritis and colitis, unspecified (principal); K56.51 Intestinal adhesions [bands], with partial obstruction; Z66 Do not resuscitate; Z20.822 Contact with and (suspected) exposure to COVID-19; E78.5 Hyperlipidemia, unspecified; E03.9 Hypothyroidism, unspecified; I10 Essential (primary) hypertension; G51.0 Bell's palsy; K21.9 Gastro-esophageal reflux disease without esophagitis; E87.6 Hypokalemia; I25.10 Atherosclerotic heart disease of native coronary artery without angina pectoris; Z79.82 Long term (current) use of aspirin; Z79.890 Hormone replacement therapy; Z79.84 Long term (current) use of oral hypoglycemic drugs; Z79.899 Other long term (current) drug therapy; Z88.5 Allergy status to narcotic agent; Z88.8 Allergy status to other drugs, medicaments and biological substances; Z85.3 Personal history of malignant neoplasm of breast; Z90.710 Acquired absence of both cervix and uterus; Z98.890 Other specified postprocedural states; Z88.2 Allergy status to sulfonamides
CPT/HCPCS: 36415; 36416; 43752; 71045; 74018; 74177; 74250; 76705; 80048; 80053; 81003; 81015; 82150; 83690; 83735; 84484; 85025; 93005; 96374; J1650; J1815; J1885; J3480; Q9963; Q9967; U0003; U0005

== ENCOUNTER 2021-08-24 09:43 | Outpatient (CLI) | payer MEDICARE | END 2021-08-24 09:44 | disposition home or self-care (01) | LOC: BICMAMMO 09:43 | PROVIDERS: ATTEND Obstetrics & Gynecology | DX: Z13.820 Encounter for screening for osteoporosis (principal); M81.0 Age-related osteoporosis without current pathological fracture; M85.89 Other specified disorders of bone density and structure, multiple sites | CPT/HCPCS: 77080 ==

== ENCOUNTER 2021-12-12 23:20 | Inpatient (IN) | payer MEDICARE ==
[2021-12-12 23:50] LABS: #Basophils 0.1 thou/uL (0.0-0.2); #Eosinphils 0.1 thou/uL (0.0-0.7); #Lymphocytes 1.4 thou/uL (1.20-3.40); #Monocytes 0.5 thou/uL (0.11-0.59); #Neutrophils 3.9 thou/uL (1.40-6.50); %Basophils 0.8 % (0.0-1.0); %Eosinophils 0.9 % (0.0-10.0); %Lymphocytes 23.2 % (21.0-51.0); %Monocytes 8.9 % (0.0-10.0); %Neutrophils 66.1 % (42.0-75.0); Hemoglobin 13.3 g/dL (12.0-16.0); Mean Corpuscular HGB CONC 33.6 g/dL (32.0-36.0); Mean Corpuscular Hemoglobin 30.4 pg (27.0-31.0); Mean Corpuscular Volume 90.3 fL (78.0-98.0); Mean Platelet Volume 5.4 fL (7.4-10.4); Platelet Count 237 thou/uL (130-400); RBC Distribution Width 12.3 % (11.5-14.5); Red Blood Cell (RBC) Count 4.37 mill/uL (4.20-5.40)
[2021-12-12] MEDS ORDERED: Diltiazem HCl 0 ML ONE (23:55)
[2021-12-13 00:13] LABS: ALT (SGPT) 35 U/L (8-55); AST (SGOT) 47 U/L (5-34); Albumin 4.2 g/dL (3.4-4.8); Alkaline Phosphatase 59 U/L (40-110); Anion Gap 14 mmol/L (10-20); BUN (Urea Nitrogen) 14 mg/dL (9.8-20.1); Bilirubin, Total 0.5 mg/dL (0.2-1.2); Calc. Creatinine Clearance 0 mL/min (70-130); Calcium 9.6 mg/dL (7.8-10.44); Carbon Dioxide 22 mmol/L (23-31); Chloride 99 mmol/L (98-107); Globulin 2.4 g/dL (2.4-3.5); Glucose 133 mg/dL (83-110); Magnesium 1.7 mg/dL (1.6-2.6); Potassium 3.5 mmol/L (3.5-5.1); Protein, Total 6.6 g/dL (5.8-8.1); Sodium 131 mmol/L (136-145)
[2021-12-13] MEDS ORDERED: Dextrose 5% in Water 1,000 ML IV PRN (01:27)
[2021-12-13] MEDS ORDERED: Dextrose 50% Abboject 50 ML SYRINGE SLOW IVP PRN (01:27)
[2021-12-13] MEDS ORDERED: HYDROcodone/Acetaminophen 5/325 mg Tablet PO PRN (01:27)
[2021-12-13] MEDS ORDERED: Insulin Regular 300 UNITS/3 ML VIAL SC PRN ×2 (01:27)
[2021-12-13] MEDS ORDERED: Calcium Carbonate 500 MG ChewTAB PO PRN (01:31)
[2021-12-13] MEDS ORDERED: Magnesium 2 GM/50 ML(in water) 2 GM in Premix Bag 1 BAG IVPB SCH ×2 (01:45→03:45)
[2021-12-13] MEDS ORDERED: Diltiazem HCl 125 MG in Premix Bag 1 BAG IVPB SCH (01:45)
[2021-12-13 01:46] LABS: #Lymphocytes 1.1 thou/uL (1.20-3.40); #Monocytes 0.6 thou/uL (0.11-0.59); #Neutrophils 4.8 thou/uL (1.40-6.50); %Basophils 0.2 % (0.0-1.0); %Eosinophils 0.4 % (0.0-10.0); %Lymphocytes 17.1 % (21.0-51.0); %Monocytes 8.8 % (0.0-10.0); %Neutrophils 73.5 % (42.0-75.0); Hemoglobin 13.2 g/dL (12.0-16.0); Mean Corpuscular HGB CONC 34.1 g/dL (32.0-36.0); Mean Corpuscular Hemoglobin 30.8 pg (27.0-31.0); Mean Corpuscular Volume 90.3 fL (78.0-98.0); Mean Platelet Volume 5.3 fL (7.4-10.4); Platelet Count 256 thou/uL (130-400); RBC Distribution Width 12.3 % (11.5-14.5); White Blood Cell (WBC) Count 6.5 thou/uL (4.8-10.8)
[2021-12-13] MEDS ORDERED: Metoprolol Tartrate 25 MG TAB PO SCH (02:00)
[2021-12-13 02:17] LABS: ALT (SGPT) 35 U/L (8-55); AST (SGOT) 39 U/L (5-34); Albumin 4.1 g/dL (3.4-4.8); Alkaline Phosphatase 58 U/L (40-110); Anion Gap 14 mmol/L (10-20); BUN (Urea Nitrogen) 12 mg/dL (9.8-20.1); Bilirubin, Total 0.5 mg/dL (0.2-1.2); Calc. Creatinine Clearance 0 mL/min (70-130); Calcium 9.6 mg/dL (7.8-10.44); Carbon Dioxide 24 mmol/L (23-31); Chloride 99 mmol/L (98-107); Globulin 2.5 g/dL (2.4-3.5); Glucose 141 mg/dL (83-110); Potassium 3.6 mmol/L (3.5-5.1); Protein, Total 6.6 g/dL (5.8-8.1); Sodium 133 mmol/L (136-145)
[2021-12-13 02:20] LABS: Troponin I 0.012 ng/mL (< 0.028)
[2021-12-13 02:24] LABS: Free T4 (Free Thyroxine) 1.21 ng/dL (0.70-1.48); T4 8.8 ug/dL (4.87-11.72)
[2021-12-13] MEDS ORDERED: Metoprolol Tartrate 25 MG TAB ONE ×2 (03:26→09:26)
[2021-12-13 06:20] LABS: Troponin I 0.016 ng/mL (< 0.028)
[2021-12-13] MEDS: Levothyroxine Sodium 75 MCG TAB PO SCH (06:24)
[2021-12-13 08:25] LABS: SARS-CoV-2 NAA Rapid Test Not Detected (NotDetected)
[2021-12-13] MEDS ORDERED: Aspirin 81 mg Enteric Coated Tablet ONE (09:26)
[2021-12-13] MEDS: Losartan 25 MG TAB PO SCH (09:38)
[2021-12-13] MEDS: Aspirin 81 mg Enteric Coated Tablet PO SCH (09:38)
[2021-12-13] MEDS: Metoprolol Tartrate 25 MG TAB PO SCH ×2 (09:38→21:08)
[2021-12-13] MEDS: Apixaban 5 MG TAB PO SCH ×2 (09:38→21:08)
[2021-12-13] MEDS ORDERED: Labetalol HCl 100 MG/20 ML VIAL SLOW IVP PRN (10:15)
[2021-12-13 12:55] VITALS: BMI 25.2
[2021-12-13] MEDS: metFORMIN XR 500 MG TAB PO SCH (17:55)
[2021-12-13] MEDS: Rosuvastatin 20 MG TAB PO SCH (21:07)
[2021-12-14 04:35] LABS: #Eosinphils 0.1 thou/uL (0.0-0.7); #Lymphocytes 1.4 thou/uL (1.20-3.40); #Monocytes 0.6 thou/uL (0.11-0.59); %Basophils 0.1 % (0.0-1.0); %Eosinophils 1.2 % (0.0-10.0); %Lymphocytes 22.8 % (21.0-51.0); %Monocytes 10.4 % (0.0-10.0); %Neutrophils 65.5 % (42.0-75.0); Hemoglobin 12.2 g/dL (12.0-16.0); Mean Corpuscular HGB CONC 34.4 g/dL (32.0-36.0); Mean Corpuscular Hemoglobin 31.2 pg (27.0-31.0); Mean Corpuscular Volume 90.6 fL (78.0-98.0); Mean Platelet Volume 5.5 fL (7.4-10.4); Platelet Count 223 thou/uL (130-400); RBC Distribution Width 12.2 % (11.5-14.5); Red Blood Cell (RBC) Count 3.91 mill/uL (4.20-5.40); White Blood Cell (WBC) Count 6.1 thou/uL (4.8-10.8)
[2021-12-14 05:07] LABS: Anion Gap 11 mmol/L (10-20); BUN (Urea Nitrogen) 10 mg/dL (9.8-20.1); Calc. Creatinine Clearance 87 mL/min (70-130); Calcium 8.7 mg/dL (7.8-10.44); Carbon Dioxide 23 mmol/L (23-31); Chloride 101 mmol/L (98-107); Glucose 112 mg/dL (83-110); Potassium 3.2 mmol/L (3.5-5.1); Sodium 132 mmol/L (136-145)
[2021-12-14] MEDS: Levothyroxine Sodium 75 MCG TAB PO SCH (05:43)
[2021-12-14] MEDS ORDERED: Potassium Chloride 20 MEQ TAB PO SCH (08:00)
[2021-12-14] MEDS ORDERED: Loratadine 10 MG TAB PO PRN (08:34)
[2021-12-14] MEDS ORDERED: Metoclopramide HCl 10 MG/2 ML VIAL IVP PRN (08:34)
[2021-12-14] MEDS ORDERED: Moisturizing Cream (Eucerin) 113 GM JAR TOP PRN (08:34)
[2021-12-14] MEDS ORDERED: Artificial Tear Sol 15 ML BOT EA EYE PRN (08:34)
[2021-12-14] MEDS ORDERED: hydrALAZINE 20 MG/ML VIAL SLOW IVP PRN (08:34)
[2021-12-14] MEDS ORDERED: Loperamide HCl 2 MG CAP PO PRN (08:34)
[2021-12-14] MEDS ORDERED: GUAIFENESIN SF SOLN 200 MG/10 ML UDCUP PO PRN (08:34)
[2021-12-14] MEDS ORDERED: Cepastat Lozenges 1 LOZ PO PRN (08:34)
[2021-12-14] MEDS: Apixaban 5 MG TAB PO SCH ×2 (10:01→10:05)
[2021-12-14] MEDS: Losartan 25 MG TAB PO SCH (10:02)
[2021-12-14] MEDS: Aspirin 81 mg Enteric Coated Tablet PO SCH (10:02)
[2021-12-14] MEDS: Metoprolol Tartrate 25 MG TAB PO SCH ×2 (10:03→21:36)
[2021-12-14] MEDS: metFORMIN XR 500 MG TAB PO SCH ×2 (18:41→21:49)
[2021-12-14] MEDS: Enoxaparin Sodium 60 MG/0.6 ML SYRINGE SC SCH (21:37)
[2021-12-14] MEDS: Rosuvastatin 20 MG TAB PO SCH (21:37)
[2021-12-14] MEDS: Bisacodyl 5 MG TAB PO PRN (21:49)
[2021-12-15] MEDS: Levothyroxine Sodium 75 MCG TAB PO SCH (06:06)
[2021-12-15] MEDS: Potassium Chloride 20 MEQ TAB PO SCH (09:20)
[2021-12-15] MEDS: Metoprolol Tartrate 25 MG TAB PO SCH ×2 (09:20→20:40)
[2021-12-15] MEDS: Losartan 25 MG TAB PO SCH (09:20)
[2021-12-15] MEDS: Aspirin 81 mg Enteric Coated Tablet PO SCH (09:21)
[2021-12-15] MEDS: Enoxaparin Sodium 60 MG/0.6 ML SYRINGE SC SCH ×2 (09:21→20:40)
[2021-12-15 11:03] LABS: Anion Gap 14 mmol/L (10-20); BUN (Urea Nitrogen) 8 mg/dL (9.8-20.1); Calc. Creatinine Clearance 71 mL/min (70-130); Calcium 8.7 mg/dL (7.8-10.44); Carbon Dioxide 22 mmol/L (23-31); Chloride 102 mmol/L (98-107); Glucose 167 mg/dL (83-110); Potassium 3.9 mmol/L (3.5-5.1); Sodium 134 mmol/L (136-145)
[2021-12-15] MEDS: metFORMIN XR 500 MG TAB PO SCH (16:46)
[2021-12-15] MEDS: Bisacodyl 5 MG TAB PO PRN (20:39)
[2021-12-15] MEDS: Rosuvastatin 20 MG TAB PO SCH (20:39)
[2021-12-16 04:43] LABS: #Eosinphils 0.1 thou/uL (0.0-0.7); #Lymphocytes 1.7 thou/uL (1.20-3.40); #Monocytes 0.4 thou/uL (0.11-0.59); #Neutrophils 2.5 thou/uL (1.40-6.50); %Basophils 0.9 % (0.0-1.0); %Eosinophils 1.6 % (0.0-10.0); %Lymphocytes 36.6 % (21.0-51.0); %Monocytes 9.3 % (0.0-10.0); %Neutrophils 51.6 % (42.0-75.0); Hemoglobin 13.6 g/dL (12.0-16.0); Mean Corpuscular Hemoglobin 32.3 pg (27.0-31.0); Platelet Count 238 thou/uL (130-400); RBC Distribution Width 12.3 % (11.5-14.5); Red Blood Cell (RBC) Count 4.21 mill/uL (4.20-5.40); White Blood Cell (WBC) Count 4.8 thou/uL (4.8-10.8)
[2021-12-16 05:11] LABS: Anion Gap 10 mmol/L (10-20); BUN (Urea Nitrogen) 8 mg/dL (9.8-20.1); Calc. Creatinine Clearance 81 mL/min (70-130); Calcium 9.2 mg/dL (7.8-10.44); Carbon Dioxide 23 mmol/L (23-31); Chloride 106 mmol/L (98-107); Glucose 103 mg/dL (83-110); Sodium 135 mmol/L (136-145)
[2021-12-16] MEDS: Levothyroxine Sodium 75 MCG TAB PO SCH (06:46)
[2021-12-16] MEDS: Metoprolol Tartrate 25 MG TAB PO SCH ×2 (09:08→20:24)
[2021-12-16] MEDS: Potassium Chloride 20 MEQ TAB PO SCH (09:08)
[2021-12-16] MEDS: Enoxaparin Sodium 60 MG/0.6 ML SYRINGE SC SCH (09:08)
[2021-12-16] MEDS: Aspirin 81 mg Enteric Coated Tablet PO SCH (09:08)
[2021-12-16] MEDS: Losartan 25 MG TAB PO SCH (09:08)
[2021-12-16] MEDS: metFORMIN XR 500 MG TAB PO SCH (17:24)
[2021-12-16] MEDS: Acetaminophen 325 MG TAB PO PRN (20:24)
[2021-12-16] MEDS: Rosuvastatin 20 MG TAB PO SCH (20:24)
[2021-12-17] MEDS: Metoprolol Tartrate 25 MG TAB PO SCH (05:10)
[2021-12-17] MEDS: Acetaminophen 325 MG TAB PO PRN ×4 (05:10→21:05)
[2021-12-17] MEDS: Levothyroxine Sodium 75 MCG TAB PO SCH (05:10)
[2021-12-17 05:14] LABS: #Eosinphils 0.1 thou/uL (0.0-0.7); #Lymphocytes 1.1 thou/uL (1.20-3.40); #Monocytes 0.4 thou/uL (0.11-0.59); #Neutrophils 2.3 thou/uL (1.40-6.50); %Basophils 0.2 % (0.0-1.0); %Eosinophils 1.4 % (0.0-10.0); %Lymphocytes 29.1 % (21.0-51.0); %Monocytes 10.9 % (0.0-10.0); %Neutrophils 58.5 % (42.0-75.0); Mean Corpuscular HGB CONC 32.7 g/dL (32.0-36.0); Mean Corpuscular Hemoglobin 31.4 pg (27.0-31.0); Mean Platelet Volume 5.9 fL (7.4-10.4); Platelet Count 214 thou/uL (130-400); RBC Distribution Width 12.3 % (11.5-14.5); Red Blood Cell (RBC) Count 3.82 mill/uL (4.20-5.40); White Blood Cell (WBC) Count 3.9 thou/uL (4.8-10.8)
[2021-12-17 05:41] LABS: Anion Gap 12 mmol/L (10-20); BUN (Urea Nitrogen) 9 mg/dL (9.8-20.1); Calc. Creatinine Clearance 90 mL/min (70-130); Carbon Dioxide 21 mmol/L (23-31); Chloride 106 mmol/L (98-107); Glucose 100 mg/dL (83-110); Potassium 4.7 mmol/L (3.5-5.1); Sodium 134 mmol/L (136-145)
[2021-12-17] MEDS ORDERED: Sodium Chloride 0.9% 1,000 ML IV SCH (06:00)
[2021-12-17] MEDS ORDERED: CEFAZOLIN 1 GM VIAL ONE (06:48)
[2021-12-17] MEDS ORDERED: Gentamicin 80 MG/100 ML BAG ONE (06:48)
[2021-12-17] MEDS ORDERED: ceFAZolin 2 GM/Dextrose 50 ML IVPB ONE (06:48)
[2021-12-17] MEDS ORDERED: Lidocaine 1% (PF) 30 ML VIAL ONE (06:48)
[2021-12-17] MEDS: Losartan 25 MG TAB PO SCH (09:56)
[2021-12-17] MEDS: Aspirin 81 mg Enteric Coated Tablet PO SCH (09:56)
[2021-12-17] MEDS: Potassium Chloride 20 MEQ TAB PO SCH (09:56)
[2021-12-17] MEDS: metFORMIN XR 500 MG TAB PO SCH (17:02)
[2021-12-17] MEDS: Rosuvastatin 20 MG TAB PO SCH (21:05)
[2021-12-17] MEDS: Flecainide 50 MG TAB PO SCH (21:05)
[2021-12-18 04:53] LABS: #Eosinphils 0.1 thou/uL (0.0-0.7); #Lymphocytes 1.2 thou/uL (1.20-3.40); #Monocytes 0.4 thou/uL (0.11-0.59); #Neutrophils 2.5 thou/uL (1.40-6.50); %Basophils 0.6 % (0.0-1.0); %Eosinophils 2.3 % (0.0-10.0); %Lymphocytes 28.1 % (21.0-51.0); %Monocytes 9.8 % (0.0-10.0); %Neutrophils 59.1 % (42.0-75.0); Hemoglobin 11.5 g/dL (12.0-16.0); Mean Corpuscular HGB CONC 34.2 g/dL (32.0-36.0); Mean Corpuscular Hemoglobin 31.9 pg (27.0-31.0); Mean Corpuscular Volume 93.3 fL (78.0-98.0); Mean Platelet Volume 5.7 fL (7.4-10.4); Platelet Count 201 thou/uL (130-400); RBC Distribution Width 12.3 % (11.5-14.5); Red Blood Cell (RBC) Count 3.61 mill/uL (4.20-5.40); White Blood Cell (WBC) Count 4.3 thou/uL (4.8-10.8)
[2021-12-18 05:20] LABS: Anion Gap 9 mmol/L (10-20); BUN (Urea Nitrogen) 7 mg/dL (9.8-20.1); Calc. Creatinine Clearance 88 mL/min (70-130); Carbon Dioxide 24 mmol/L (23-31); Chloride 104 mmol/L (98-107); Glucose 101 mg/dL (83-110); Potassium 4.1 mmol/L (3.5-5.1); Sodium 133 mmol/L (136-145)
[2021-12-18] MEDS: Levothyroxine Sodium 75 MCG TAB PO SCH (06:00)
[2021-12-18] MEDS: Acetaminophen 325 MG TAB PO PRN (09:20)
[2021-12-18] MEDS: Aspirin 81 mg Enteric Coated Tablet PO SCH (09:20)
[2021-12-18] MEDS: Flecainide 50 MG TAB PO SCH (09:20)
[2021-12-18] MEDS: Losartan 25 MG TAB PO SCH (09:20)
[2021-12-18 11:47] VITALS: TEMP 97.5
[2021-12-18 14:24] VITALS: BP 164/64
[2021-12-20] MEDS ORDERED: Apixaban 5 MG TAB PO SCH (09:00)
[2021-12-21] MEDS ORDERED: Apixaban 5 MG TAB PO SCH (09:00)
== END 2021-12-18 12:20 | disposition home or self-care (01) | DRG 243 ==
LOC: ERS 23:20 → 2NO 12-13 00:57 → ERHOLD 12-13 01:14 → 2NO 12-13 12:17
PROVIDERS: ADMIT Internal Medicine; ATTEND Internal Medicine
PROC: 0JH606Z Insertion of Pacemaker, Dual Chamber into Chest Subcutaneous Tissue and Fascia, Open Approach (ICD-10-PCS; principal; 2021-12-17)
PROC: 02HK0JZ Insertion of Pacemaker Lead into Right Ventricle, Open Approach (ICD-10-PCS; 2021-12-17)
PROC: 02H60JZ Insertion of Pacemaker Lead into Right Atrium, Open Approach (ICD-10-PCS; 2021-12-17)
DX: I48.0 Paroxysmal atrial fibrillation (principal); E87.1 Hypo-osmolality and hyponatremia; Z66 Do not resuscitate; Z20.822 Contact with and (suspected) exposure to COVID-19; I10 Essential (primary) hypertension; E11.9 Type 2 diabetes mellitus without complications; E03.9 Hypothyroidism, unspecified; E78.5 Hyperlipidemia, unspecified; K21.9 Gastro-esophageal reflux disease without esophagitis; I48.92 Unspecified atrial flutter; I25.10 Atherosclerotic heart disease of native coronary artery without angina pectoris; E87.6 Hypokalemia; E78.00 Pure hypercholesterolemia, unspecified; I49.5 Sick sinus syndrome; Z88.8 Allergy status to other drugs, medicaments and biological substances; Z79.82 Long term (current) use of aspirin; Z79.890 Hormone replacement therapy; Z79.84 Long term (current) use of oral hypoglycemic drugs; Z79.899 Other long term (current) drug therapy; Z85.3 Personal history of malignant neoplasm of breast; Z90.710 Acquired absence of both cervix and uterus; Z98.890 Other specified postprocedural states
CPT/HCPCS: 33208; 36415; 36416; 71045; 80048; 80053; 83735; 84436; 84439; 84443; 84481; 84484; 85025; 93005; 93010; 93306; 93798; 96365; 96376; C1785; C1898; J0360; J0690; J1580; J1650; J1815; J2001; J3475; J7050; U0002

== ENCOUNTER 2022-09-11 15:08 | Outpatient (CLI) | payer MEDICARE | END 2022-09-11 15:09 | disposition home or self-care (01) | LOC: ULT 15:08 | PROVIDERS: ATTEND Nurse Practitioner Family | DX: I65.22 Occlusion and stenosis of left carotid artery (principal) | CPT/HCPCS: 93880 ==

== ENCOUNTER 2023-04-21 15:26 | Outpatient (CLI) | payer MEDICARE | END 2023-04-21 15:27 | disposition home or self-care (01) | LOC: BICRAD 15:26 | PROVIDERS: ATTEND Family Medicine | DX: R07.81 Pleurodynia (principal) | CPT/HCPCS: 71046 ==

== ENCOUNTER 2023-08-06 07:35 | Outpatient (CLI) | payer MEDICARE | END 2023-08-06 07:36 | disposition home or self-care (01) | LOC: BICULT 07:35 | PROVIDERS: ATTEND Family Medicine | DX: R74.8 Abnormal levels of other serum enzymes (principal); K80.20 Calculus of gallbladder without cholecystitis without obstruction; K83.8 Other specified diseases of biliary tract | CPT/HCPCS: 76700 ==

== ENCOUNTER 2023-09-04 09:51 | Inpatient (IN) | payer MEDICARE ==
[2023-09-04 10:24] LABS: #Monocytes 0.3 thou/uL (0.11-0.59); #Neutrophils 8.2 thou/uL (1.40-6.50); %Basophils 0.2 % (0.0-1.0); %Eosinophils 0.1 % (0.0-10.0); %Lymphocytes 5.6 % (21.0-51.0); %Monocytes 3.7 % (0.0-10.0); %Neutrophils 90.1 % (42.0-75.0); Hemoglobin 12.9 g/dL (12.0-16.0); Mean Corpuscular HGB CONC 33.1 g/dL (32.0-36.0); Mean Corpuscular Hemoglobin 30.9 pg (27.0-31.0); Mean Corpuscular Volume 93.5 fl (78.0-98.0); Mean Platelet Volume 8.8 fL (7.4-10.4); Platelet Count 193 10x3/uL (130-400); RBC Distribution Width 13.2 % (11.5-14.5); Red Blood Cell (RBC) Count 4.17 mill/uL (4.20-5.40); White Blood Cell (WBC) Count 9.2 10x3/uL (4.8-10.8)
[2023-09-04 10:53] LABS: Troponin I Less than 0.010 ng/mL (< 0.028)
[2023-09-04 10:58] LABS: ALT (SGPT) 23 U/L (8-55); AST (SGOT) 51 U/L (5-34); Albumin 4.2 g/dL (3.4-4.8); Alkaline Phosphatase 77 U/L (40-110); Anion Gap 15 mmol/L (10-20); BUN (Urea Nitrogen) 13 mg/dL (9.8-20.1); Bilirubin, Total 1.6 mg/dL (0.2-1.2); Calc. Creatinine Clearance 0 mL/min (70-130); Calcium 9.5 mg/dL (7.8-10.44); Carbon Dioxide 24 mmol/L (23-31); Chloride 104 mmol/L (98-107); Estimated GFR 66; Globulin 2.3 g/dL (2.4-3.5); Glucose 229 mg/dL (83-110); Potassium 4.3 mmol/L (3.5-5.1); Protein, Total 6.5 g/dL (5.8-8.1); Sodium 139 mmol/L (136-145)
[2023-09-04] MEDS ORDERED: Sodium Chloride 0.9% 100 ML ONE (11:56)
[2023-09-04] MEDS ORDERED: Piperacillin/Tazobactam 3.375 GM VIAL ONE (11:56)
[2023-09-04 13:26] LABS: Bilirubin Negative (Negative); Blood, Urine Negative (Negative); Clarity Clear (Clear); Glucose, Urine (Dipstick) 70 mg/dL (Negative); Ketone, Urine Negative (Negative); Leukocyte 250 Leu/uL (Negative); Nitrite Negative (Negative); Protein, Urine (Dipstick) Negative (Neg-Trace); Specific Gravity, Urine 1.008 (1.002-1.036); Urobilinogen Normal mg/dL (Less than 2)
[2023-09-04 13:32] LABS: Bacteria/HPF 1+ HPF (None Seen)
[2023-09-04 14:00] LABS: Lactic Acid 2.6 mmol/L (0.5-2.2)
[2023-09-04] MEDS: Acetaminophen 325 MG TAB PO PRN (15:55)
[2023-09-04] MEDS: Lactated Ringer's 1,000 ML IV SCH (15:56)
[2023-09-04] MEDS ORDERED: Piperacillin/Tazobactam 3.375 GM in Sodium Chloride 0.9% 100 ML IVPB SCH (16:00)
[2023-09-04 16:10] VITALS: BMI 24.5
[2023-09-04] MEDS ORDERED: Glucagon 1 MG/ML KIT IM PRN (19:00)
[2023-09-04] MEDS ORDERED: Dextrose 50% Abboject 50 ML SYRINGE IVP PRN (19:00)
[2023-09-04] MEDS ORDERED: Dextrose 5% in Water 1,000 ML IV PRN (19:00)
[2023-09-04] MEDS: Famotidine/PF 20 mg/2ml Vial SLOW IVP SCH (20:40)
[2023-09-04] MEDS: Rosuvastatin 20 MG TAB PO SCH (20:40)
[2023-09-04] MEDS: Piperacillin/Tazobactam 3.375 GM in Sodium Chloride 0.9% 100 ML IVPB SCH (20:41)
[2023-09-04] MEDS: HumaLOG 300 UNITS/3 ML VIAL SC PRN (21:12)
[2023-09-05 03:39] LABS: #Monocytes 0.8 thou/uL (0.11-0.59); #Neutrophils 7.2 thou/uL (1.40-6.50); %Basophils 0.2 % (0.0-1.0); %Eosinophils 0.1 % (0.0-10.0); %Lymphocytes 9.2 % (21.0-51.0); %Monocytes 8.9 % (0.0-10.0); %Neutrophils 81.3 % (42.0-75.0); Hematocrit 32.6 % (36.0-47.0); Hemoglobin 10.8 g/dL (12.0-16.0); Mean Corpuscular HGB CONC 33.1 g/dL (32.0-36.0); Mean Platelet Volume 8.9 fL (7.4-10.4); Platelet Count 154 10x3/uL (130-400); RBC Distribution Width 13.5 % (11.5-14.5); White Blood Cell (WBC) Count 8.9 10x3/uL (4.8-10.8)
[2023-09-05 03:57] LABS: Lactic Acid 0.9 mmol/L (0.5-2.2)
[2023-09-05 04:08] LABS: Mean Corpuscular Volume 90.6 fl (78.0-98.0)
[2023-09-05 04:26] LABS: ALT (SGPT) 93 U/L (8-55); AST (SGOT) 135 U/L (5-34); Albumin 3.4 g/dL (3.4-4.8); Alkaline Phosphatase 83 U/L (40-110); Anion Gap 12 mmol/L (10-20); BUN (Urea Nitrogen) 10 mg/dL (9.8-20.1); Bilirubin, Total 3.8 mg/dL (0.2-1.2); Calc. Creatinine Clearance 67 mL/min (70-130); Calcium 8.6 mg/dL (7.8-10.44); Carbon Dioxide 22 mmol/L (23-31); Chloride 109 mmol/L (98-107); Estimated GFR 83; Glucose 118 mg/dL (83-110); Lipase 25 U/L (8-78); Potassium 3.7 mmol/L (3.5-5.1); Protein, Total 5.4 g/dL (5.8-8.1); Sodium 139 mmol/L (136-145)
[2023-09-05] MEDS: Levothyroxine Sodium 88 MCG TAB PO SCH (06:17)
[2023-09-05] MEDS: Aspirin 81 mg Enteric Coated Tablet PO SCH (08:49)
[2023-09-05] MEDS ORDERED: Iopamidol 30 ML ONE (08:51)
[2023-09-05] MEDS ORDERED: Indomethacin 50 MG SUPP ONE (08:52)
[2023-09-05] MEDS ORDERED: Rocuronium Bromide 10 MG/ML (10ML VIAL) ONE (08:59)
[2023-09-05] MEDS ORDERED: Dexamethasone 20 MG/5 ML VIAL ONE (08:59)
[2023-09-05] MEDS ORDERED: Lidocaine 1% PF 5 ML VIAL ONE (08:59)
[2023-09-05] MEDS ORDERED: Ondansetron PF 4 MG/2 ML Vial ONE (09:00)
[2023-09-05] MEDS ORDERED: PROPOFOL 20 ML ONE (09:00)
[2023-09-05] MEDS: Flecainide 50 MG TAB PO SCH (09:00)
[2023-09-05] MEDS ORDERED: SUCCINYLCHOLINE/SOD CL,ISO/PF 200 MG/10 ML SYRINGE FS ONE (09:00)
[2023-09-05] MEDS: Raloxifene 60 MG TAB PO SCH (09:00)
[2023-09-05] MEDS ORDERED: ePHEDrine Sulfate 50 MG/10 ML VIAL ONE (09:18)
[2023-09-05] MEDS ORDERED: PHENYLEPHRINE-NS 100 MCG/ML 10 ML SYRINGE ONE (09:30)
[2023-09-05] MEDS ORDERED: Ondansetron HCl/PF 4 MG/2 ML Vial IVP PRN (09:47)
[2023-09-05] MEDS ORDERED: Morphine Sulfate 2 MG/ML SYRINGE SLOW IVP PRN (09:47)
[2023-09-05] MEDS ORDERED: Phenylephrine 10 MG/ML VIAL ONE (09:51)
[2023-09-05] MEDS ORDERED: Flecainide 50 MG TAB PO SCH (21:00)
[2023-09-05] MEDS: Amlodipine 5 MG TAB PO SCH (22:08)
[2023-09-06 05:25] LABS: #Monocytes 0.6 thou/uL (0.11-0.59); #Neutrophils 5.5 thou/uL (1.40-6.50); %Basophils 0.3 % (0.0-1.0); %Lymphocytes 8.7 % (21.0-51.0); %Monocytes 8.4 % (0.0-10.0); Hematocrit 32.1 % (36.0-47.0); Hemoglobin 10.5 g/dL (12.0-16.0); Mean Corpuscular HGB CONC 32.7 g/dL (32.0-36.0); Mean Corpuscular Hemoglobin 30.6 pg (27.0-31.0); Mean Corpuscular Volume 93.6 fl (78.0-98.0); Mean Platelet Volume 9.3 fL (7.4-10.4); Platelet Count 160 10x3/uL (130-400); RBC Distribution Width 13.2 % (11.5-14.5); Red Blood Cell (RBC) Count 3.43 mill/uL (4.20-5.40); White Blood Cell (WBC) Count 6.7 10x3/uL (4.8-10.8)
[2023-09-06 05:56] LABS: ALT (SGPT) 125 U/L (8-55); AST (SGOT) 114 U/L (5-34); Albumin 3.4 g/dL (3.4-4.8); Alkaline Phosphatase 124 U/L (40-110); Anion Gap 8 mmol/L (10-20); BUN (Urea Nitrogen) 7 mg/dL (9.8-20.1); Bilirubin, Total 1.5 mg/dL (0.2-1.2); Calc. Creatinine Clearance 68 mL/min (70-130); Calcium 8.8 mg/dL (7.8-10.44); Carbon Dioxide 23 mmol/L (23-31); Chloride 109 mmol/L (98-107); Estimated GFR 84; Globulin 2.1 g/dL (2.4-3.5); Glucose 159 mg/dL (83-110); Lipase 22 U/L (8-78); Potassium 3.9 mmol/L (3.5-5.1); Protein, Total 5.5 g/dL (5.8-8.1); Sodium 136 mmol/L (136-145)
[2023-09-06] MEDS ORDERED: Levothyroxine Sodium 88 MCG TAB PO SCH (06:00)
[2023-09-06 12:02] VITALS: BP 135/61; TEMP 98.2
[2023-09-06] MEDS ORDERED: metFORMIN XR 500 MG ER.TAB PO SCH (17:00)
[2023-09-06] MEDS ORDERED: Amlodipine 5 MG TAB PO SCH (21:00)
== END 2023-09-06 11:45 | disposition home or self-care (01) | DRG 445 ==
LOC: ERS 09:51 → SJJU 12:24
PROVIDERS: ADMIT Internal Medicine; ATTEND Internal Medicine
PROC: 0FC98ZZ Extirpation of Matter from Common Bile Duct, Via Natural or Artificial Opening Endoscopic (ICD-10-PCS; principal; 2023-09-05)
PROC: 3E033XZ Introduction of Vasopressor into Peripheral Vein, Percutaneous Approach (ICD-10-PCS; 2023-09-05)
DX: K80.43 Calculus of bile duct with acute cholecystitis with obstruction (principal); E87.21 Acute metabolic acidosis; K80.01 Calculus of gallbladder with acute cholecystitis with obstruction; K80.32 Calculus of bile duct with acute cholangitis without obstruction; I10 Essential (primary) hypertension; Z66 Do not resuscitate; I48.91 Unspecified atrial fibrillation; E03.9 Hypothyroidism, unspecified; I95.9 Hypotension, unspecified; I48.0 Paroxysmal atrial fibrillation; I50.9 Heart failure, unspecified; Z91.040 Latex allergy status; Z88.8 Allergy status to other drugs, medicaments and biological substances; Z88.5 Allergy status to narcotic agent; Z79.82 Long term (current) use of aspirin; Z79.890 Hormone replacement therapy; Z79.899 Other long term (current) drug therapy; Z92.3 Personal history of irradiation; Z85.3 Personal history of malignant neoplasm of breast; Z92.21 Personal history of antineoplastic chemotherapy; Z80.8 Family history of malignant neoplasm of other organs or systems; Z82.49 Family history of ischemic heart disease and other diseases of the circulatory system; Z88.2 Allergy status to sulfonamides; Z95.0 Presence of cardiac pacemaker; Z01.818 Encounter for other preprocedural examination; K80.20 Calculus of gallbladder without cholecystitis without obstruction
CPT/HCPCS: 36415; 36416; 71045; 74330; 76705; 80048; 80053; 80076; 81001; 83605; 83690; 83880; 84484; 85025; 87040; 93005; 93010; 96361; 96365; J1100; J1815; J2371; J2405; J2543; J2704; J3490; J7120; Q9967; S0028

== ENCOUNTER 2023-09-10 10:29 | Day surgery (SDC) | payer MEDICARE ==
[2023-09-03 09:58] VITALS: BMI 24.3
[2023-09-10] MEDS ORDERED: EPINEPHrine 1 MG/ML VIAL ONE (13:34)
[2023-09-10] MEDS ORDERED: Bupivacaine 0.25% HCL 30 ML VIAL ONE (13:34)
[2023-09-10] MEDS ORDERED: Rocuronium Bromide 10 MG/ML (10ML VIAL) ONE (13:35)
[2023-09-10] MEDS ORDERED: Dexamethasone 4 mg/ml Vial ONE (13:35)
[2023-09-10] MEDS ORDERED: Ondansetron PF 4 MG/2 ML Vial ONE (13:35)
[2023-09-10] MEDS ORDERED: Esmolol 100 MG/10 ML VIAL ONE (13:35)
[2023-09-10] MEDS ORDERED: fentaNYL PF 100 MCG/2 ML SYRINGE ONE (13:35)
[2023-09-10] MEDS ORDERED: Lidocaine 1% PF 5 ML VIAL ONE (13:36)
[2023-09-10] MEDS ORDERED: PROPOFOL 20 ML ONE (13:36)
[2023-09-10] MEDS ORDERED: Sodium Chloride 0.9% 100 ML ONE (13:42)
[2023-09-10] MEDS ORDERED: CEFAZOLIN 2 GM VIAL ONE (13:42)
[2023-09-10] MEDS ORDERED: Labetalol HCl 100 MG/20 ML VIAL ONE (14:23)
[2023-09-10] MEDS ORDERED: SUGAMMADEX SODIUM 200 MG/2 ML VIAL ONE (14:27)
[2023-09-10] MEDS ORDERED: fentaNYL 50 mcg/mL 1 mL Vial ONE ×5 (14:57→15:37)
[2023-09-10] MEDS ORDERED: HYDROcodone/Acetaminophen 5/325 mg Tablet ONE (16:15)
== END 2023-09-10 17:05 | disposition home or self-care (01) ==
LOC: SDC 10:29
PROVIDERS: ATTEND Surgery
PROC: 0FT44ZZ Resection of Gallbladder, Percutaneous Endoscopic Approach (ICD-10-PCS; principal; 2023-09-10)
DX: K80.12 Calculus of gallbladder with acute and chronic cholecystitis without obstruction (principal); I10 Essential (primary) hypertension; I48.91 Unspecified atrial fibrillation; E11.29 Type 2 diabetes mellitus with other diabetic kidney complication; E78.5 Hyperlipidemia, unspecified; E03.9 Hypothyroidism, unspecified; Z90.710 Acquired absence of both cervix and uterus; Z95.0 Presence of cardiac pacemaker; Z79.899 Other long term (current) drug therapy; Z79.82 Long term (current) use of aspirin; Z79.84 Long term (current) use of oral hypoglycemic drugs; Z79.890 Hormone replacement therapy; Z88.1 Allergy status to other antibiotic agents; Z88.2 Allergy status to sulfonamides; Z88.5 Allergy status to narcotic agent; Z88.8 Allergy status to other drugs, medicaments and biological substances; Z91.040 Latex allergy status
CPT/HCPCS: 47562; J0171; J3010; 88304; C1889; J0665; J1100; J2405; J2704; J3490

== ENCOUNTER 2023-09-23 08:50 | Outpatient (CLI) | payer MEDICARE | END 2023-09-23 08:51 | disposition home or self-care (01) | LOC: BICMAMMO 08:50 | PROVIDERS: ATTEND Obstetrics & Gynecology | DX: Z12.31 Encounter for screening mammogram for malignant neoplasm of breast (principal); N64.89 Other specified disorders of breast; Z85.3 Personal history of malignant neoplasm of breast; Z98.890 Other specified postprocedural states | CPT/HCPCS: 77063; 77067 ==

== ENCOUNTER 2025-03-29 13:50 | Outpatient (CLI) | payer MEDICARE | END 2025-03-29 13:51 | disposition home or self-care (01) | LOC: ULT 13:50 | PROVIDERS: ATTEND Family Medicine | DX: R22.1 Localized swelling, mass and lump, neck (principal) | CPT/HCPCS: 76536 ==